=== PATIENT | female | born 1950 ===

== ENCOUNTER 2024-08-30 11:45 | Inpatient (IN) | payer OTHER ==
[~2024-08-30] VITALS: Ht 157.5 cm; Wt 66.7 kg
[2024-08-30 14:05] VITALS: BP 142/84
[2024-08-30] MEDS ORDERED: ZESTRIL5 MG PO (14:06)
[2024-09-05] MEDS ORDERED: CEFAZOLIN SODIUM 1,000 MG VIAL ONE (12:11)
[2024-09-05] MEDS ORDERED: VANCOMYCIN HCL 1,000 MG VIAL ONE ×2 (12:11→20:15)
[2024-09-05] MEDS ORDERED: METHYLPREDNISOLONE SOD SUCC 125 MG VIAL ONE (12:12)
[2024-09-05] MEDS ORDERED: METHYLPREDNISOLONE ACETATE 80 MG/ML VIAL ONE ×2 (12:14→13:12)
[2024-09-05] MEDS ORDERED: ENALAPRILAT DIHYDRATE 1.25 MG/ML VIAL IV PRN (12:45)
[2024-09-05] MEDS ORDERED: 0.9 % SODIUM CHLORIDE 1,000 ML IV SCH (12:45)
[2024-09-05] MEDS ORDERED: PROMETHAZINE HCL 50 MG/ML AMPUL IM PRN (12:45)
[2024-09-05] MEDS ORDERED: PERCOCET 5-3251 EACH PO (12:57)
[2024-09-05] MEDS ORDERED: AMOX-CLAV 875-1 EACH PO (12:58)
[2024-09-05] MEDS ORDERED: MEDROLPACK PO (12:58)
[2024-09-05] MEDS ORDERED: COLACE100 MG PO (13:00)
[2024-09-05] MEDS ORDERED: MORPHINE SULFATE 4 MG/ML CARTRIDGE IV SCH (13:00)
[2024-09-05] MEDS ORDERED: DOCUSATE SODIUM 100MG CAP PO SCH (13:00)
[2024-09-05] MEDS ORDERED: ZOFRAN8 MG PO (13:01)
[2024-09-05] MEDS ORDERED: NEURONTIN800 MG PO (13:01)
[2024-09-05] MEDS ORDERED: GABAPENTIN100 M2 PO (13:01)
[2024-09-05] MEDS ORDERED: VANCOMYCIN HCL 1,000 MG VIAL IR ONE (13:45)
[2024-09-05] MEDS ORDERED: VANCOMYCIN HCL 1,000 MG VIAL SPEPROC ONE (13:45)
[2024-09-05] MEDS ORDERED: VANCOMYCIN HCL 1,000 MG VIAL IV ONE (13:45)
[2024-09-05] MEDS ORDERED: METHYLPREDNISOLONE ACETATE 80 MG/ML VIAL IM ONE ×2 (13:45)
[2024-09-05] MEDS ORDERED: CEFAZOLIN SODIUM 1,000 MG VIAL IV ONE (13:45)
[2024-09-05] MEDS ORDERED: MORPHINE SULFATE 4 MG/ML VIAL IV ONE ×2 (15:50→16:20)
[2024-09-05] MEDS ORDERED: CEFAZOLIN SODIUM 1,000 MG in 0.9 % SODIUM CHLORIDE 50 ML IV SCH (17:00)
[2024-09-05] MEDS ORDERED: FAMOtidine 20 MG TABLET PO SCH (17:00)
[2024-09-05] MEDS ORDERED: METHYLPREDNISOLONE SOD SUCC 125 MG VIAL IV SCH (17:00)
[2024-09-05] MEDS ORDERED: ACETAMINOPHEN 500 MG GEL..CAP PO SCH (20:00)
[2024-09-05 20:36] VITALS: BP 108/63; O2SAT 97
[2024-09-05] MEDS ORDERED: GABAPENTIN 800 MG TABLET PO SCH (21:00)
[2024-09-05] MEDS ORDERED: VANCOMYCIN HCL 1,000 MG VIAL IV SCH (21:00)
[2024-09-05 21:52] VITALS: O2SAT 100
[2024-09-06] VITALS (8 sets, daily range): BP systolic 130–162; BP diastolic 69–78; O2SAT 90–100
[2024-09-06] MEDS ORDERED: SODIUM CHLORIDE 0.45 % 1,000 ML IV SCH
[2024-09-06] MEDS ORDERED: OxyCODONE HCL 5 MG TABLET (ROXICODONE) PO PRN (06:01)
[2024-09-06] MEDS ORDERED: VANCOMYCIN HCL 1,000 MG VIAL ONE ×2 (07:08→15:35)
[2024-09-06 08:02] LABS: HEMATOCRIT 35.4 % (36.0-45.00); HEMOGLOBIN 11.8 g/dL (12.0-15.00); MEAN CELL VOLUME 97.5 fL (80.00-100.00); MEAN CORPUSCULAR HEMOGLOBIN 32.5 pg (27.00-32.0); MEAN CORPUSCULAR HGB CONC 33.3 g/dl (32.0-36.0); PLATELET COUNT 205 K/uL (150-450); RED BLOOD COUNT 3.63 M/uL (4.00-6.00)
[2024-09-06] MEDS ORDERED: TAMSULOSIN HCL 0.4 MG CAP PO SCH (09:00)
[2024-09-06] MEDS ORDERED: ENOXAPARIN SODIUM 40 MG/0.4 ML SYRINGE SUBCUTANEO SCH (09:00)
[2024-09-06 09:28] LABS: CREATININE SERUM 0.7 mg/dL (0.55-1.02); GFR 81.36; POTASSIUM 4.43 mEq/L (3.5-5.1)
[2024-09-07] VITALS: O2SAT 90
[2024-09-07 01:06] VITALS: BP 149/74; O2SAT 99
[2024-09-07 05:08] VITALS: O2SAT 90
[2024-09-07 08:00] VITALS: BP 122/55; O2SAT 94
[2024-09-07 10:04] VITALS: O2SAT 97
== END 2024-09-07 14:24 | disposition home or self-care (01) | DRG 428 ==
LOC: O/R 09-05 08:37 → SURH 09-05 11:45
PROVIDERS: ADMIT Orthopaedic Surgery Orthopaedic Surgery of the Spine; ATTEND Orthopaedic Surgery Orthopaedic Surgery of the Spine
PROC: 0SG10K1 Fusion of 2 or more Lumbar Vertebral Joints with Nonautologous Tissue Substitute, Posterior Approach, Posterior Column, Open Approach (ICD-10-PCS; 2024-09-05)
PROC: 0SG0071 Fusion of Lumbar Vertebral Joint with Autologous Tissue Substitute, Posterior Approach, Posterior Column, Open Approach (ICD-10-PCS; 2024-09-05)
PROC: 0ST20ZZ Resection of Lumbar Vertebral Disc, Open Approach (ICD-10-PCS; 2024-09-05)
PROC: 0QB30ZZ Excision of Left Pelvic Bone, Open Approach (ICD-10-PCS; 2024-09-05)
PROC: 07DR0ZZ Extraction of Iliac Bone Marrow, Open Approach (ICD-10-PCS; 2024-09-05)
PROC: 4A11X4G Monitoring of Peripheral Nervous Electrical Activity, Intraoperative, External Approach (ICD-10-PCS; 2024-09-05)
PROC: XRGC0R7 Fusion of 2 or more Lumbar Vertebral Joints using Custom-Made Anatomically Designed Interbody Fusion Device, Open Approach, New Technology Group 7 (ICD-10-PCS; principal; 2024-09-05 13:00)
DX: M43.16 Spondylolisthesis, lumbar region (principal); M48.062 Spinal stenosis, lumbar region with neurogenic claudication; M51.369 Other intervertebral disc degeneration, lumbar region without mention of lumbar back pain or lower extremity pain; M54.16 Radiculopathy, lumbar region; I10 Essential (primary) hypertension